=== PATIENT | female | born 2005 | race Caucasian/White ===

== ENCOUNTER 2025-03-13 14:15 | Outpatient (REF) | payer BC, SELFPAY ==
--- OUTSIDE RECORDS SUMMARY | 2025-02-08 06:00 | XMS_ITS ---
Author Organization [facility], [facility] Address [address] [facility] [address] [place] [id number] Care Team Providers Care Featheredger And Reducer Machine Name Role Phone CAMILLE DIEGO Primary Care Provider REASON FOR VISIT 19 year girl PE Encounters Encounter Location Date Provider Diagnosis [facility], [facility] [address] [facility] [address] [place], [place] [phone] 02/08/2025 CAMILLE DIEGO Plan Of Treatment Next Appt Details Provider Name:CAMILLE DIEGO , 02/22/2026 01:30:00 PM, [address], [place], [place], [phone], Progress Notes * JOSAFAT QUINONES MDOB:2005 (19 yo F)Acc No.[id number]:02/08/2025 Patient: Bela OSCAR JOSAFAT Castellanos Provider: Carroll Diego MD :2005 A ge:19 Y S ex:Female Date:02/08/2025 Address: [address] [id number] Subjective: * Chief Complaints: * 1 . 19 year girl PE. * Medical History: Objective: * Vitals: Assessment: Plan: * Treatment: * Billing Information: * Visit Code: * Procedure Codes: * Electronic signature of EMILE DIEGO M.D. on 03/13/2025 at 04:51 PM EDT Sign off status: Pending * Provider: Carroll Diego MD Date: 0 02/08/2025 Generated for Christine marshall/Sonia/eTransmitting on: 0 03/13/2025 04:51 PM EDT
--- NOTE | ~2025-03-13 | US_ITS ---
EXAMINATION: US PELVIS CLINICAL INFORMATION: Pelvic pain, IUD COMPARISON: None available. TECHNIQUE: Ultrasound of the pelvis is performed using both transabdominal and transvaginal transducers along with Doppler. Transvaginal imaging is performed due to inadequate visualization transabdominally. FINDINGS: Uterus: The uterus is anteverted and measures 7.5 x 3.4 x 4.1 cm. The double wall endometrial thickness is mm. Shadowing IUD projects in the upper uterine canal. The uterus is smooth in contour and has normal myometrial echogenicity. No visible fibroid. Adnexa: Both ovaries are visualized. There is normal color flow to the adnexa. There is no ovarian torsion. There is no pelvic ascites or fluid collection. Right ovary measures 3.0 x 1.9 x 3.0 cm. Left ovary measures 2.3 x 1.8 x 2.0 cm. US/US pelvic and transvaginal IMPRESSION: Appropriately positioned IUD. Unremarkable examination. Electronically signed by: Joe Patel MD 03/13/2025 04:29 PM EDT
--- OUTSIDE RECORDS SUMMARY | 2025-03-13 16:51 | XMS_ITS | Clinical Summary ---
Author Organization [facility] Address [address] [place] [phone] Phone Care Team Providers Care Silver Lap Machine Tender Name Role Phone Ashley Diego MD Primary Care Provider Allergies No known active allergies Medications HYDROcodone-chucky taminophen (NORCO) 5-325 mg per tablet Take 1 tablet by mouth every 6 (six) hours as needed for pain (specific location in comments). Partial fill ok 6 tablet Active Additional Information Patient not taking.Reported on 03/01/2025 lidocaine (XYLOCAINE) 2 % mucosal gel jelly Apply topically as needed. Apply 1-2 drops around the base of the infected tooth using a cotton tipped applicator, may apply Q1-2 hours PRN for pain 50 mL 4 Active Additional Information Patient not taking.Reported on 03/01/2025 tretinoin (RETIN-A) 0.025 % cream 1 application to affected area External Once a day at bedtime for 90 days Active mupirocin (BACTROBAN) 2 % ointment Apply topically 3 (three) times a day. 22 g 4 Active Additional Information Patient not taking.Reported on 03/01/2025 Hospital, Clinic, or Other Facility Administered Medication Ordered Dose Route Frequency Start Date End Date Status levonorgestreL (KYLEENA) 17.5 mcg/24 hr (5 yrs) 19.5 mg intrauterine device 1 each 1 each Utrn Every 5 years 03/01/2025 Active copper (PARAGARD) intrauterine device 1 eachIndications:Enc ounter for insertion of intrauterine contraceptive device 1 each Utrn Every 10 years 02/19/2025 5 Discontinued lidocaine (PF) (XYLOCAINE-MPF) 2% injection 5 mLIndications:Encou nter for insertion of intrauterine contraceptive device 5 mL Epid Once 02/19/2025 5 Ended Active Problems Problem Noted Date Diagnosed Date IUD (intrauterine device) in place 03/01/2025 Overview (03/01/2025): Hank doss Feb (good for 5 yrs) Encounters Date Type Department Care Team Description 03/01/2025 9:20 AM EDT Procedure visit [facility] [address] [place] [address] Flavia Greco CNP Encounter for removal of intrauterine contraceptive device (IUD) (Primary Dx); Encounter for insertion of intrauterine contraceptive device; IUD (intrauterine device) in place 02/28/2025 11:45 AM EDT - 02/28/2025 11:59 PM EDT Hospital Encounter [facility] Ultrasound - [place] [address] [place] [address] Patricia Diallo MD Discharge Disposition: Home or Self Care 02/28/2025 Telephone [facility] [address] [place] [address] Juju Garcia RN 02/19/2025 10:30 AM EDT Procedure visit [facility] [address] [place] [address] Tatiana Swan DNP Encounter for insertion of intrauterine contraceptive device (Primary Dx); Papanicolaou smear for cervical cancer screening 01/29/2025 9:30 AM EDT Telemedicine [facility] [address] [place] [address] Tatiana Swan DNP Counseling for control regarding intrauterine device (IUD) (Primary Dx) from Last 3 Months Family History Medical History Relation Comments Breast cancer Neg Hx Colon cancer Neg Hx Ovarian cancer Neg Hx Social History Tobacco Use Types Packs/Day Years Used Date Smoking Tobacco: Never Smokeless Tobacco: Never Tobacco Cessation:Counseling Given: Not Answered Alcohol Use Standard Drinks/Week Comments Yes 0 (1 standard drink = 0.6 oz pur e alcohol) occ Education Answer Date Recorded Are you interested in more education? Not on olivia e 11/08/2022 Are you concerned about learning? Not on file 11/08/2022 No 11/08/2022 No 11/08/2022 Digital Access Answer Date Recorded No 11/29/2022 No 11/29/2022 Reliable internet access at home? Not on file 11/29/2022 Device with a working camera? Not on file Intimate Partner Violence Answer Date R ecorded Are you denied basic needs s uch as food, clothing, or medical care? No 03/01/2024 In the past 12 months have y ou been in a relationship with a person who hurts, threatens, or tries to control you? No 03/01/2024 Are you denied basic needs s uch as food, clothing, or medical care? No 03/01/2024 In the past 12 months have y ou been in a relationship with a person who hurts, threatens, or tries to control you? No 03/01/2024 Comments No Sex and Gender Information Value Date Recorded Sex Assigned at Not on file Legal Sex Female 6:23 PM EST Gender Identity Not on file Sexual Orientation Not on file Last Filed Vital Signs Vital Sign Reading Time Taken Comments Blood Pressure 120/84 03/01/2025 9:23 AM EDT Pulse 71 05/06/2024 11:49 AM EDT Temperature 37.1 C (98.8 F) 03/01/2024 9:59 PM EDT Respiratory Rate - - Oxygen Saturation 98% 05/06/2024 11:49 AM EDT Inhaled Oxygen Concentration - - Weight 64.9 kg (143 lb) 03/01/2025 9:23 AM EDT Height 167.6 cm (5' 6 ) 01/29/2025 9:47 AM EDT Body Mass Index 23.08 01/29/2025 9:47 AM EDT Plan of Treatment Upcoming Encounters Date Type Department Care Team (Late st Contact Info) Description 06/06/2025 9:20 AM EST Follow-Up [facility] [address] [place] [address] Flavia Greco, LOL[place] [address] [place] [address] [email or web address] Health Maintenance Due Date Last Done Comments DEPRESSION SCREENING 2015 MENINGOCOCCAL VACCINES (B) (1 of 2 - Standard) 2019 ADOLESCENT UNIVERSAL LIPID SCREENING 11/25/2020 HEPATITIS C SCREENING 11/25/2021 HIV ONE-TIME SCREENING (18-65 YEARS) 11/25/2021 INFLUENZA VACCINE (#1) 2025 , 02/27/2020, 05/25/2019, Additional history exists COVID-19 VACCINE ( season) 2025 07/22/2021, 11/23/2020, 11/02/2020 Adult Td,Tdap Booster 08/06/2025 08/06/2015 COMBINED DTaP,Tdap,Td (7 - Td or Tdap) 08/06/2025 08/06/2015, 03/23/2008, 04/17/2005, Additional history exists SMOKING Hx and SMOKELESS TOBACCO SCREENING 01/29/2026 01/29/2025 PAP SMEAR 02/20/2028 02/19/2025 IUD 03/01/2030 03/01/2025 PNEUMOCOCCAL VACCINES (0-49 years) Aged Out 12/08/2004, 12/08/2004, 06/09/2004, Additional history exists No longer eligible based on patient's age to complete this topic HIB VACCINES Completed 04/17/2005, 12/2003, 04/07/2004, Additional history exists MMR VACCINES Completed 03/23/2008, 04/17/2005 HEPATITIS A VACCINES Completed 05/08/2013, 02/26/20 12 HPV VACCINES Completed 02/09/2017, 08/11/2016 MENINGOCOCCAL VACCINES (ACWY) Completed 02/27/2020, 08/06/2015 Medical Devices Implanted Type Area Packaging Technician Device Identifier Shelf Expiration Date Model / Serial / Lot Iud Implanted: (Quantity not on file) Intrauterine Device Procedures Procedure Name Priority Date/Time Associated Diagnosis Comments POCT URINE HCG Routine 03/01/2025 11:14 AM EDT Encounter for insertion of intrauterine contraceptive device US PELVIS TRANSABDOMINAL PLUS TRANSVAGINAL W 3D AT CONSOLE ONLY Routine 02/28/2025 12:14 PM EDT Pelvic pain TRICHOMONAS NUCLEIC ACID DETECTION Routine 02/19/2025 3:00 PM EDT CHLAMYDIA TRACHOMATIS AND NEISSERIA GONORRHOEAE NUCLEIC ACID DETECTION Routine 02/19/2025 3:00 PM EDT POCT URINE HCG Routine 02/19/2025 11:25 AM EDT Encounter for insertion of intrauterine contraceptive device PAP TEST Routine 02/19/2025 9:32 AM EDT from Last 3 Months Results * Poct Urine HCG (03/01/2025 11:14 AM EDT) Only the most recent of2 resultswithin the time period is included. HCG, urine Negative, Internal QCs acceptable Negative [facility] Other 03/01/2025 11:1 4 AM EDT us Flavia Greco CNP POINT OF CARE TEST ORDERABLES [place] [address], [facility] [phone] * US PELVIS TRANSABDOMINAL PLUS TRANSVAGINAL W 3D AT CONSOLE ONLY (02/28/2025 12:14 PM EDT) MGB IMG CASER COMMENT IUD in place with its body appropriately within the endometrial canal. The left arm, however, is folded and extends approximately 7 mm into the posterior myometrium. The right arm extends 1 mm in. [facility] Anatomical Region Laterality Modality Pelvis, Uterus/Adnexa Ultrasound 02/28/2025 12:1 5 PM EDT Impressions 02/28/2025 12:58 PM EDT 1. IUD in place with its body appropriately within the endometrial canal. The left arm, however, is folded and extends approximately 7 mm into the posterior myometrium. The right arm extends approximately 1 mm into the adjacent right myometrium. 2. Probable involuting right ovarian follicle or cyst measuring up to 17 mm. 3. Trace pelvic free fluid, likely physiologic. A clinically significant result was initiated on 02/28/2025 12:58 PM, Message ID [id number]. Narrative 02/28/2025 12:58 PM EDT US PELVIS TRANSABDOMINAL AND TRANSVAGINAL W 3D AT CONSOLE ONLY Referring clinician's provided indication for this examination in Epic: Pelvic Pain; Pain after IUD insertion, unable to locate IUD strings., IUD placed on 818. TECHNIQUE: Pelvic Ultrasound Transabdominal performed for global imaging of the pelvis. Pelvic Ultrasound Transvaginal performed for detailed imaging of the endometrium and/or adnexa. 3D post-processing of the images was performed on the console, not on an independent workstation, and the post-processed images were used in interpretation. COMPARISON: None. FINDINGS: LMP: Unsure. Uterus: Size: Measures 8.5 x 3.3 x 3.8 cm. Orientation: anteverted Myometrium: Homogeneous without focal myometrial mass. Endometrium: Measures 12 mm and is heterogeneous. There is an IUD whose body lies within the endometrial canal. The right arm extends approximately 1 mm into the adjacent myometrium. The left arm is folded and extends approximately 7 mm into the adjacent myometrium. A few nabothian cysts are seen in the cervix. Right adnexa: Ovary: Right ovary measures 3.3 x 2.4 x 2.8 cm and demonstrates a crenulated cystic structure measuring up to 1.7 cm, likely an involuting follicle or cyst. Other small follicles are noted. Left adnexa: Ovary: Measures 2.4 x 1.7 x 1.7 cm and is unremarkable with small follicles noted. Normal. Free fluid: There is trace pelvic free fluid. Procedure Note Pineda Tinoco MD - 02/28/2025 US PELVIS TRANSABDOMINAL AND TRANSVAGINAL W 3D AT CONSOLE ONLY Referring clinician's provided indication for this examination in [facility]:Pelvic Pain; Pain after IUD insertion, unable to locate IUD strings., IUDplaced on 818. TECHNIQUE: Pelvic Ultrasound Transabdominal performed for global imagingof the pelvis. Pelvic Ultrasound Transvaginal performed for detailedimaging of the endometrium and/or adnexa. 3D post-processing of the imageswas performed on the console, not on an independent workstation, and thepost-processed images were used in interpretation. COMPARISON: None. FINDINGS: LMP: Unsure. Uterus: Size: Measures 8.5 x 3.3 x 3.8 cm. Orientation: anteverted Myometrium: Homogeneous without focal myometrial mass. Endometrium: Measures 12 mm and is heterogeneous. There is an IUD whosebody lies within the endometrial canal. The right arm extendsapproximately 1 mm into the adjacent myometrium. The left arm is foldedand extends approximately 7 mm into the adjacent myometrium. A few nabothian cysts are seen in the cervix. Right adnexa: Ovary: Right ovary measures 3.3 x 2.4 x 2.8 cm and demonstrates a crenulatedcystic structure measuring up to 1.7 cm, likely an involuting follicle orcyst. Other small follicles are noted. Left adnexa: Ovary: Measures 2.4 x 1.7 x 1.7 cm and is unremarkable with small folliclesnoted. Normal. Free fluid: There is trace pelvic free fluid. IMPRESSION: 1. IUD in place with its body appropriately within the endometrial canal.The left arm, however, is folded and extends approximately 7 mm into theposterior myometrium. The right arm extends approximately 1 mm into theadjacent right myometrium. 2. Probable involuting right ovarian follicle or cyst measuring up to 17mm. 3. Trace pelvic free fluid, likely physiologic. A clinically significant result was initiated on 02/28/2025 12:58 PM,Message ID [id number]. Patricia Diallo MD [facility] PELVIS Final Result * Chlamydia trachomatis and Neisseria gonorrhoeae Nucleic Acid Amplification (02/19/2025 3:00 PM EDT) Specimen Type Cervix/ThinP rep [facility] C.TRACHOMATIS , AMP Negative Negative [facility] N.Gonorrhoeae , AMP Negative Negative [facility] 02/19/2025 3:00 PM EDT 02/20/2025 10:29 AM EDT us Tatiana Swan DNP NON CULTURE MICROBIOLOGY Final Result Performing Organization Address City/[facility]/ZIP Co de Phone Number [facility] [address] [place] [address] [phone] * Trichomonas nucleic acid detection (02/19/2025 3:00 PM EDT) SPECIMEN TYPE Cervix/ThinP rep [facility] TRICHOMONAS AMP Negative Negative [facility] 02/19/2025 3:00 PM EDT 02/20/2025 10:29 AM EDT Tatiana Cassandra Beny DNP NON CULTURE MICROBIOLOGY Final Result Performing Organization Address [facility] Co de Phone Number [facility] [address] [place] [address] [phone] * Pap Test (02/19/2025 9:32 AM EDT) 02/19/2025 9:32 AM EDT 02/20/2025 9:32 AM EDT Narrative SEE NARRATIVE - 02/27/2025 11:15 [place] [address] Senior Product Designer: Lauren Swain MD SUPPLY COORDINATOR Cytology Report FINAL DIAGNOSIS A. CERVICAL, LIQUID BASED SPECIMEN: SPECIMEN ADEQUACY: Satisfactory for evaluation; transformation zone present. INTERPRETATION: NEGATIVE FOR INTRAEPITHELIAL LESION OR MALIGNANCY. This specimen was analyzed by the automated ThinPrep Imaging System (Pandoo TEK.) and the selected mcdonough were reviewed by a fur ironer. Electronically Signed Out By: AALINA Pimentel (ASCP) The Pap test is a screening test primarily for squamous cancers and precursors and has associated false-negative and false-positive results. New technologies such as liquid-based preparations may decrease but will not eliminate all false-negative results. Regular sampling and follow-up of unexplained clinical signs and symptoms are recommended to minimize false negative results. CLINICAL HISTORY Date of Last Menstrual Period: 02/13/25 Menstrual History: Other: PREMENOPAUSAL Other Clinical Conditions: Routine: Z12.4 SPECIMEN SOURCE A: CERVICAL, LIQUID BASED SPECIMEN GROSS DESCRIPTION One ThinPrep vial received from which a single Pap-stained slide was prepared. Processing and cytotech screening of this specimen performed at [facility], [address] [place] [address]. Patient Name: JOSAFAT QUINONES : 2005 (Age: 19) Sex: F Institution: [facility] Location: [facility] Date of Collection: 02/19/2025 Date of Reported: 02/27/2025 11:15 Ordered By: Tatiana Swan [facility] Copy To: us Tatiana Swan [facility] CYTOLOGY ORDERABLES Ting steen Result Performing Organization Address City/State/[facility] Co de Phone Number SEE NARRATIVE from Last 3 Months Insurance Care Teams Silver Lap Machine Tender Relationship Specialty Start Date End Date Ashley Diego MD [address] [place] [address] [place] [phone] [email or web address] PCP - General 10/16/21 Additional Source Comments The information contained in this document represents components of the legal health record. It is not the complete legal health record.[facility]
--- OUTSIDE RECORDS SUMMARY | 2025-03-13 16:51 | XMS_ITS | Encounter Summary ---
Author Organization [facility] Address [address] [place] [phone] Phone Care Team Providers Care Geophysical Drafter Name Role Phone Ashley Diego MD Primary Care Provider Encounter Details Date Type Department Care Team (Late st Contact Info) Description 02/28/2025 Telephone [facility] [address] [place] [address] Juju Garcia, RN [address] [place] [address] Social History Tobacco Use Types Packs/Day Years Used Date Smoking Tobacco: Never Smokeless Tobacco: Never Alcohol Use Standard Drinks/Week Comments Yes 0 [...] on file Sexual Orientation Not on file documented as of this encounter Progress Notes * Juju Garcia RN - 02/28/2025 2:01 PM EDT Misplaced IUD patient needs to be seen tomorrow. Patient informed and discussed motrin 600-800 mg 1hour prior with food. Patient is going to look on [email or web address] at options but thinks she will stickwith copper IUD. documented in this encounter Plan of Treatment Upcoming Encounters Date Type Department Care Team (Late st Contact Info) Description 06/06/2025 9:20 AM EST Follow-Up [facility] [address] [place] [address] Flavia Greco CNP [address] [place] [phone] documented as of this encounter Visit Diagnoses Not on filedocumented in this encounter Care Teams Geophysical Drafter Relationship Specialty Start Date End Date Ashley Diego MD [address] [place] [phone] [email or web address] PCP - General 10/16/21 documented as of this encounter Additional Source Comments The information contained in this document represents components of the legal health record. It is not the complete legal health record.[facility]
--- OUTSIDE RECORDS SUMMARY | 2025-03-13 16:51 | XMS_ITS | Patient Health Record ---
Author Organization [facility] Address [address] [facility] [address] [place] [id number] Care Team Providers Care Cone Sewer Name Role Phone CAMILLE REDDING Primary Care Provider Allergies No Known Allergies Results Component Value Reference Range Notes XR CHEST 2 VW [id number] Reviewed date:11/28/2024 03:15:10 PM Interpretation:neg Performing Lab: Notes/Report: [facility] LACTATE DEHYDROGENASE Reviewed date:11/28/2024 02:17:43 PM Interpretation:196 Performing Lab: Notes/Report: [facility] [address] [place] [address] Ordering Provider: CAMILLE REDDING Copied To: , LD 196 110-220 U/L Supervisor Stage Carpentry: Manuel LOAIZA Note See Below For Report CRP, SERUM OR PLASMA Reviewed date:11/28/2024 02:17:32 PM Interpretation:< 3 Performing Lab: Notes/Report: [facility] [address] [place] [address] Ordering Provider: CAMILLE REDDING Copied To: , C-REACTIVE PROTEIN < 3.0 <5.0 mg/L Lab Direc tor: ANN LOAIZA Note See Below For Report SEDIMENTATION RATE, AUTOMATE D Reviewed date:11/28/2024 01:27:37 PM Interpretation:5 Performing Lab: Notes/Report: [facility] [address] [place] [address] Ordering Provider: CAMILLE REDDING Copied To: , ERYTHROCYTE SEDIMENTATION RATE 5 0-20 mm/hr Supervisor Stage Carpentry: ANN LOAIZA Note See Below For Report CBC AND DIFFERENTIAL Reviewed date:11/28/2024 01:27:30 PM Interpretation:benign CBCD Performing Lab: Notes/Report: [facility] [address] [place] [address] Ordering Provider: CAMILLE REDDING Copied To: , WBC 7.06 4.00-11.00 K/uL RBC 4.59 4.00-5.20 M/uL HEMOGLOBIN 14.2 12.0-15.0 g/dL HEMATOCRIT 44.0 36.0-45.0 % MCH 30.9 23.0-37.0 pg MCHC 32.3 29.0-38.0 g/dL MCV 96 82-98 fL RDW 12.4 11.5-14.5 % PLATELET COUNT 188 150-450 K/uL MEAN PLATELET VOLUME 10.6 6.0-14.0 fL POLYS 51.7 LYMPHOCYTE 38.1 MONOCYTE 8.5 EOSINOPHIL 1.0 BASOPHIL 0.3 IMMATURE GRANULOCYTES 0.[address] 3.65 1.50-7.70 K/uL ABSOLUTE IMMATURE GRAN CT 0.03 0.00-0.09 K/uL ABSOLUTE LYMPH CT 2.69 1.50-4.00 K/uL ABSOLUTE MONO CT 0.60 0.16-1.26 K/uL ABSOLUTE EOS CT 0.07 0.15-0.30 K/uL ABSOLUTE BASO CT 0.02 0.00-0.21 K/uL Lab Direc tor: ANN LOAIZA Note See Below For Report D-DIMER Reviewed date:11/28/2024 02:17:37 PM Interpretation:low Performing Lab: Notes/Report: D-dimer results of less than 500 ng/ml FEU are considered to be normal. The combination of a low clinical probability and normal D-dimer concentration provides a high level of certainty for ruling out PE or DVT. [facility] [address] [place] [address] Ordering Provider: CAMILLE REDDING Copied To: , D-DIMER CALCULATED (FEU) <= 270 <=500 ng/mL FEU Supervisor Stage Carpentry: ANN LOAIZA Note See Below For Report COMPREHENSIVE METABOLIC PANE L Reviewed date:11/28/2024 02:18:25 PM Interpretation:nl CMP Performing Lab: Notes/Report: [facility] [address] [place] [address] Ordering Provider: CAMILLE REDDING Copied To: , SODIUM 137 135-146 mmol/L POTASSIUM 3.9 3.4-5.2 mmol/L CHLORIDE 102 98-110 mmol/L TOTAL CO2 23 24-32 mmol/L ANION GAP 12 2-15 mmol/L BUN 12 7-24 mg/dL CREATININE 0.70 0.50-1.10 mg/dL GLUCOSE 95 50-100 mg/dL CALCIUM 9.5 8.5-10.5 mg/dL TOTAL PROTEIN 7.3 6.2-8.2 g/dL ALBUMIN, BLOOD 4.5 3.4-5.2 g/dL GLOBULIN 2.8 2.0-4.0 g/dL AST (SGOT) 20 11-40 U/L ALT (SGPT) 10 5-35 U/L ALK PHOSPHATASE 61 30-115 U/L TOTAL BILIRUBIN 0.6 0.2-1.2 mg/dL ESTIMATED GFR (CKD-EPI) 124 >=60 mL/min/BSA L ab Director: ANN LOAIZA Note See Below For Report Reason For Referral Reason Tova Pintokers [phone] Diagnosis 1 Cellulitis of face ( L03.211) Referral Organization [facility] [employer] Referring Provider First Name CAMILLE Referring Provider Last Name MILADIS Referring Provider Speciality Pediatrics Referred Provider Specialty Other Medica l Care Referral Priority Routine Referral Appointment Date 05/06/2024 Reason Tatiana Swan [phone] Diagnosis 1 Encounter for initia l prescription of contraceptives, unspecified (Z30.019) Diagnosis 2 Irregular menses (N9 2.6) Referral Organization [facility] [employer] Referring Provider First Name CAMILLE Referring Provider Last Name MILADIS Referring Provider Speciality Pediatrics Referred Provider [facility] Referred Provider Specialty Anglesmith and mechanism assembler Referral Priority Routine Referral Appointment Date 01/29/2025 Medications Medication SIG (Take, Route, Frequency, Duration) Notes Start Date End Date Status Tretinoin 0.025 % 1 application to aff ected area External Once a day at bedtime; Duration: 90 days Active Paragard Intrauterine Copper - as directed Intrauterine 02/19/2025 Act [place] Immunizations Vaccine Route Administration Date Status Comme nts COVID-19 Pfizer Unknown 11/02/2020 Administered COVID-19 Pfizer Unknown 11/23/2020 Administered COVID-19 Pfizer Unknown 07/22/2021 Administered DTAP Unknown 01/29/2004 Administered DTAP Unknown 04/07/2004 Administered DTAP Unknown 06/09/2004 Administered DTAP Unknown 04/17/2005 Administered DTAP Unknown 03/23/2008 Administered Hep A, ped/adol, 2 dose Unknown 02/26/2012 Administered Hep A, ped/adol, 2 dose Unknown 05/08/2013 Administered Hep B (0-18) pediatrics/adolescent Unknown 2003 Administered Hep B (0-18) pediatrics/adolescent Unknown 2003 Administered Hep B (0-18) pediatrics/adolescent Unknown 09/08/2004 Administered Hib (PRP-T), 4 dose schedule Unknown 01/29/2004 Administered Hib (PRP-T), 4 dose schedule Unknown 04/07/2004 Administered Hib (PRP-T), 4 dose schedule Unknown 06/09/2004 Administered Hib (PRP-T), 4 dose schedule Unknown 04/17/2005 Administered HPV (human papillomavirus) 9-valent Unknown 08/11/2016 Administered HPV (human papillomavirus) 9-valent Unknown 02/09/2017 Administered Influenza Vaccine Unknown 04/17/2005 Administered Influenza Vaccine Unknown 05/15/2005 Administered Influenza Vaccine Unknown 06/02/2006 Administered Influenza Vaccine Unknown 06/22/2007 Administered Influenza Vaccine Unknown 03/23/2008 Administered Influenza virus quadrivalent (IIV4) 6mo+ Unknown 05/20/2017 Administered Influenza virus quadrivalent (IIV4) 6mo+ Unknown 04/30/2018 Administered Influenza virus quadrivalent (IIV4) 6mo+ IM Intramuscular 05/25/2019 Administered Influenza virus quadrivalent (IIV4) 6mo+ IM Intramuscular 02/27/2020 Administered Influenza virus quadrivalent (IIV4) 6mo+ IM Intramuscular 03/03/2021 Administered Influenza virus trivalent (ccIIV3) PRIVATE IM Intramuscular 02/20/2025 Administered Influenza, live, intranasal Unknown 02/22/2009 Administered Influenza, live, intranasal Unknown 02/24/2010 Administered Influenza, live, intranasal Unknown 05/16/2012 Administered Influenza, live, intranasal Unknown 05/08/2013 Administered Influenza, live, intranasal Unknown 06/14/2014 Administered Influenza, seasonal, injectable, preservative free, 3 yrs and above Unknown 05/25/2015 Administered Influenza, unspecified formulation (CPT 38143 Inactive) Unknown 06/11/2016 Administered IPV Unknown 01/29/2004 Administered IPV Unknown 04/07/2004 Administered IPV Unknown 09/08/2004 Administered IPV Unknown 03/23/2008 Administered Meningococcal ACWY Unknown 08/06/2015 Administered Meningococcal ACWY IM Intramuscular 02/27/2020 Administere d MMR Unknown 04/17/2005 Administered MMR Unknown 03/23/2008 Administered Pneumococcal conjugate PCV 7 Unknown 01/29/2004 Administered Pneumococcal conjugate PCV 7 Unknown 04/07/2004 Administered Pneumococcal conjugate PCV 7 Unknown 06/09/2004 Administered Pneumococcal conjugate PCV 7 Unknown 12/08/2004 Administered Tdap Unknown 08/06/2015 Administered Tdap IM Intramuscular 02/20/2025 Administered Varicella Unknown 12/08/2004 Administered Varicella Unknown 03/23/2008 Administered Problems Problem Type SNOMED Code ICD Code Onset Dates Problem Status W/U Status Risk Notes Problem Acne vulgaris (39012082) Acne vulgaris (L70.0) Active confirmed Problem Menstrual disorder (345235241) Irregular menses (N92.6) Active confirmed Problem Disorder of skin AND/OR subcutaneous tissue (31017648) Skin lesion of face (L98.9) Active confirmed Vital Signs Heart Rate 72 /min 02/20/2025 Respiratory Rate 16 /min 11/28/2024 Oximetry 99 % 11/28/2024 Blood pressure diastolic 66 mm Hg 02/20/2025 Height 66 in 02/20/2025 Blood pressure systolic 120 mm Hg 02/20/2025 Weight 143 lbs 02/20/2025 BMI 23.08 kg/m2 02/20/2025 Procedures Procedure Date Ordered Date Performed Result Body Sit e PHQ-2/PHQ-9 02/20/2025 02/20/2025 score 2 TUBERCULOSIS RISK ASSESSMENT - OTHER 02/20/2025 02/20/2025 low Encounters Encounter Location Date Provider Diagnosis [facility] [address] [place] [id number] 11/28/2024 CAMILLE REDDING Other chest pain R07.89 [facility] [address] [place] [phone] 02/20/2025 CAMILLE REDDING Encounter for immunization Z23 ; Well adult exam Z00.00 ; Encounter for immunization safety counseling Z71.85 ; Acne vulgaris L70.0 and Irregular menses N92.6 [facility] [address] [place], [place] [id number] 11/28/2024 CAMILLE REDDING [facility] [address] [place], [place] [phone] 12/10/2024 CAMILLE REDDING [facility] [address] [facility] [address] [place] [phone] 01/24/2025 CAMILLE REDDING Assessments Encounter Date Diagnosis (ICD Code) Assessment Notes Treatment Notes Treatment Clinical Notes Section Notes 11/28/2024 Other chest pain (ICD-10 - R07.89) chest and back pain, worsened positionally and with weight on L arm but also with breathing suspect muscular but will get labs and CXR as traveling ot [place] on 5 d recommend stretching, IB tid with food call if fever, SOB, increase pain and prn 02/20/2025 Encounter for immunization (ICD-10 - Z23) 02/20/2025 Well adult exam (ICD-10 - Z00.00) UTD ag re continued healthy habits -ensure 3 meals and healthful snacks -5 servings of FV daily -encourage lean protein and whole grain -water for thirst, avoid sweetened beverages -continue activity-minimum 60 min, 3/wk -limit screen time to not more than 2 hrs/day -consistent BT and wake time and keep electronics out of bedroom ag re summer safety including helmet use for all wheeled activities, sunscreen use for all outdoor activities, tick checks nightly and water safety ag re substance use, sexual feelings, moods, phone use neck, back and chest pain when fatigued/not sleeping enough- likely tension related mag supp daily recommend yoga- call if increased sx or inb UTD with routine supervisor stage carpentry care, pap yesterday 02/20/2025 Encounter for immunization safety counseling (ICD-10 - Z71.85) Vaccine product safety counseling; reviewed risks, benefits, side effects, contraindicat ions; Consent obtained. 02/20/2025 Acne vulgaris (ICD-10 - L70.0) using OTC now 02/20/2025 Irregular menses (ICD-10 - N92.6) under supervisor stage carpentry care copper IUD yesetrday had pap yesterday 11/28/2024 Other Plan Of Treatment Next Appt Details Provider Name:CAMILLE REDDING , 02/22/2026 01:30:00 PM, [address] [facility] [address], [place], [phone], Insurance Providers Payer Name Payer Address Payer Phone Subscriber Number Group Number Insured Name Patient Relationship to Insured Coverage Start Date Coverage End Date [employer] of [place] [address] [place] [phone] [id number] JOSAFAT QUINONES Self - patient is the insured Medical (General) History Medical History History ICD Code scoliosis om 11/10 pna 05/15 Allergic rhinitis
--- OUTSIDE RECORDS SUMMARY | 2025-03-13 16:51 | XMS_ITS | Clinical Summary ---
Author Organization [facility] Address [address] [place] [address] Care Team Providers Care History Professor Name Role Phone Ashley Diego MD Primary Care Provider [phone] Ashley Diego MD Unavailable [phone] Allergies No known active allergies Medications sulfamethoxazol e-trimethoprim (BACTRIM DS) 800-160 mg per tablet Take 1 tablet (160 mg of trimethoprim total) by mouth every 12 hours. 14 tablet 0 Active Social History Tobacco Use Types Packs/Day Years Used Date Smoking Tobacco: Never Assessed Comments Unknown Sex and Gender Information Value Date Recorded Sex Assigned at Female 11/21/2018 9:28 PM EDT Legal Sex Female 10:04 PM EDT Gender Identity Female 11/21/2018 9:28 PM EDT Sexual Orientation Not on file Last Filed Vital Signs Vital Sign Reading Time Taken Comments Blood Pressure 123/82 07/19/2023 1:25 AM EST Pulse 75 07/19/2023 1:25 AM EST Temperature 36.7 C (98 F) 07/19/2023 1:25 AM EST Respiratory Rate 20 07/19/2023 1:25 AM EST Oxygen Saturation 99% 07/19/2023 1:25 AM EST Inhaled Oxygen Concentration - - Weight 70.5 kg (155 lb 6.8 oz) 07/19/2023 1:25 A M EST Height 167.6 cm (5' 6 ) 07/19/2023 1:25 AM EST Body Mass Index 25.09 07/19/2023 1:25 AM EST Plan of Treatment Health Maintenance Due Date Last Done Comments Depression Screening 2007 Chlamydia and Gonorrhea Screening 11/25/2018 Meningococcal B Vaccines (1 of 2 - Standard) 2019 Hepatitis C Screening 11/25/2021 Cervical Cancer Screening 11/25/2024 Pap Smear 11/25/2024 COVID-19 Vaccine ( season) 2025 07/22/2021, 11/23/2020, 11/02/2020 Influenza Vaccine (#1) 2025 , 02/27/2020, 05/25/2019, Additional history exists DTaP,Tdap,and Td Vaccines (7 - Td or Tdap) 08/06/2025 08/06/2015, 03/23/2008, 04/17/2005, Additional history exists Blood Pressure 07/19/2027 07/19/2023 Pneumococcal Vaccine: Pediatrics (0 to 5 Years) and At-Risk Patients (6 to 64 Years) Aged Out 12/08/2004, 06/09/2004, 04/07/2004, Additional history exists No longer eligible based on patient's age to complete this topic Meningococcal Vaccines Completed 02/27/2020, 2015 Insurance [email or web address] [place] [email or web address] [facility] [email or web address] [facility] [employer] [facility] * Guarantor: SEBASTIEN QUINONES Account Type Relation to Patient Date of Phone Billing Address Personal/Family Father [address] [id number] Care Teams History Professor Relationship Specialty Start Date End Date Ashley Diego MD [address] [facility] [address] [place] [address] PCP - General 09/17/10 Ashley Diego MD [address] [facility] [address] [place] [address] PCP - Insurance Assigned PCP 12/07/22
== END 2025-03-13 14:16 | disposition home or self-care (01) ==
LOC: HO.UMASIMG 14:15
PROVIDERS: Visit Provider Nurse Practitioner Women's Health
DX: R10.2 Pelvic and perineal pain (principal)
CPT/HCPCS: 76830; 76856

== ENCOUNTER → 2025-03-13 15:00 | Outpatient (BNV) | payer BC, SELFPAY | PROVIDERS: Visit Provider Radiology Diagnostic Radiology | DX: R10.2 Pelvic and perineal pain (principal); Z97.5 Presence of (intrauterine) contraceptive device | CPT/HCPCS: 76830; 76856 ==